=== PATIENT | male | born 1950 | race American Indian/Alaskan Native ===

== ENCOUNTER 2016-10-11 11:02 | Outpatient (CLI) | payer MEDICARE ==
--- NOTE | 2016-10-11 12:59 | Ultrasound Report ---
THYROID ULTRASOUND:10/11/16 11:02:00 CLINICAL: Asymmetric thyroid enlargement. FINDINGS: High-resolution ultrasound demonstrated a mildly enlarged left thyroid and a normal size right thyroid. The right lobe measures 4.0 x 0.9 x 1.4cm. The left lobe measures 4.9 x 2.1 x 1.8. The isthmus measures 9.0 mm AP thickness. A solid left heterogeneous mildly hypoechoic nodule in the mid-lower left lobe measures 1.9 x 1.3 x 1.4 cm. The overall thyroid echogenicity is normal. No right thyroid nodule or cyst. IMPRESSION: A solid 1.9 cm left thyroid nodule and mild enlargement of the left thyroid lobe. No other nodule or mass. Consider ultrasound guided left thyroid FNA.
== END 2016-10-11 11:03 | disposition home or self-care (01) ==
LOC: SPVWC 11:02
PROVIDERS: ATTEND Internal Medicine
DX: E07.9 Disorder of thyroid, unspecified (principal)
CPT/HCPCS: 76536